=== PATIENT | female | born 1985 | race Hispanic/Latino ===

== ENCOUNTER 2017-11-08 12:19 | Emergency (ER) | payer SELFPAY ==
[2017-11-08] MEDS ORDERED: ACETAMINOPHEN 325 MG TAB ONE (13:33)
[2017-11-08] MEDS ORDERED: ONDANSETRON ODT 4 MG TAB ONE (13:33)
[2017-11-08 13:47] LABS: RAPID GROUP A STREP NEGATIVE (NEGATIVE)
[2017-11-08 13:47] LABS: APPEARANCE,URINE Clear (CLEAR); BILIRUBIN,URINE Negative (NEGATIVE); COLOR,URINE Yellow (YELLOW); GLUCOSE, URINE (UA) Negative (NEGATIVE); KETONES,URINE Negative (NEGATIVE); LEUKOCYTE ESTERASE ,URINE Negative (NEGATIVE); NITRATE,URINE Negative (NEGATIVE); OCCULT BLOOD,URINE Small (NEGATIVE); PROTEIN,URINE Negative (NEGATIVE)
[2017-11-08 13:48] LABS: HCG,QUAL RESULT NEGATIVE (NEGATIVE)
[2017-11-08 14:01] LABS: BACTERIA,URINE None Seen /HPF (None Seen); WBC,URINE None Seen /HPF (0-1)
[2017-11-08] MEDS ORDERED: KETOROLAC TROMETHAMINE 60 MG/2 ML VIAL ONE (14:12)
== END 2017-11-08 15:03 | disposition home or self-care (01) ==
LOC: EDH 12:19
DX: J10.1 Influenza due to other identified influenza virus with other respiratory manifestations (principal); R50.81 Fever presenting with conditions classified elsewhere
CPT/HCPCS: 81001; 81025; 87804 ×2; 87880; 96372; 99284; J1885

== ENCOUNTER 2018-05-24 20:38 | Emergency (ER) | payer OTHER ==
[2018-05-24 21:25] LABS: APPEARANCE,URINE Clear (CLEAR); BILIRUBIN,URINE Negative (NEGATIVE); COLOR,URINE Yellow (YELLOW); GLUCOSE, URINE (UA) Negative (NEGATIVE); KETONES,URINE Negative (NEGATIVE); LEUKOCYTE ESTERASE ,URINE Negative (NEGATIVE); NITRATE,URINE Negative (NEGATIVE); OCCULT BLOOD,URINE Negative (NEGATIVE); PROTEIN,URINE Negative (NEGATIVE)
[2018-05-24 21:33] LABS: HCG,QUAL RESULT NEGATIVE (NEGATIVE)
[2018-05-24 21:34] LABS: BASOPHILS % (AUTO) 0.5 % (0.0-5.0); CREATININE 0.7 mg/dL (0.5-1.5); EOSINOPHILS % (AUTO) 5.5 % (0.0-8.0); HEMATOCRIT 35.8 % (36-48); MEAN CORPUSCULAR HEMOGLOBIN 23.2 pg (27.0-33.0); MEAN CORPUSCULAR HGB CONC 31.7 g/dL (32.0-36.0); MEAN CORPUSCULAR VOLUME 73.4 fL (79-99); MONOCYTES % (AUTO) 8.1 % (3.0-13.0); NEUTROPHILS % (AUTO) 61.9 % (40.0-77.0); NUCLEATED RED BLOOD CELLS 0.1 % (0.0-0.19); PLATELET COUNT (AUTO) 251 K/uL (130-400); POTASSIUM 3.3 mmol/L (3.5-5.1); RED BLOOD CELL COUNT(AUTO) 4.88 MIL/uL (4.00-5.50); RED CELL DISTRIBUTION WIDTH 16.4 % (11.0-15.5); WHITE BLOOD COUNT (AUTO) 6.9 K/uL (4.8-10.8)
[2018-05-24 21:39] LABS: BILIRUBIN,TOTAL 0.2 mg/dL (0.2-1.0); TOTAL PROTEIN, SERUM 6.7 g/dL (6.0-8.3)
[2018-05-24] MEDS ORDERED: POTASSIUM BICARB/CIT AC 25 MEQ TABLET.EFF ONE (22:04)
[2018-05-24] MEDS ORDERED: ONDANSETRON ODT 4 MG TAB ONE (22:04)
== END 2018-05-24 22:10 | disposition home or self-care (01) ==
LOC: EDH 20:38
DX: J06.9 Acute upper respiratory infection, unspecified (principal)
CPT/HCPCS: 36415; 80053; 81003; 81025; 85025; 87804

== ENCOUNTER 2019-04-12 17:58 | Emergency (ER) | payer SELFPAY ==
[2019-04-12] MEDS ORDERED: PREDNISONE 20 MG TABLET ONE (18:12)
[2019-04-12] MEDS ORDERED: FAMOTIDINE 20MG TAB 20 MG TAB ONE (18:12)
[2019-04-12] MEDS ORDERED: DIPHENHYDRAMINE HCL 25 MG CAPSULE ONE (18:13)
== END 2019-04-12 19:25 | disposition home or self-care (01) ==
LOC: EDH 17:58
DX: L50.0 Allergic urticaria (principal)
CPT/HCPCS: 99284; Q0163

== ENCOUNTER 2019-05-22 10:51 | Emergency (ER) | payer SELFPAY ==
[2019-05-22] MEDS ORDERED: KETOROLAC TROMETHAMINE 60 MG/2 ML VIAL ONE (11:07)
== END 2019-05-22 11:20 | disposition home or self-care (01) ==
LOC: EDH 10:51
DX: H60.92 Unspecified otitis externa, left ear (principal)
CPT/HCPCS: 96372; 99283; J1885

== ENCOUNTER 2019-06-07 10:05 | Emergency (ER) | payer SELFPAY ==
[2019-06-07] MEDS ORDERED: KETOROLAC TROMETHAMINE 30MG/ML ONE (10:44)
[2019-06-07] MEDS ORDERED: DICYCLOMINE HCL 10 MG/ML 2ML AMP IM ONE (10:44)
[2019-06-07] MEDS ORDERED: ONDANSETRON HCL 4 MG/2 ML VIAL ONE (10:44)
[2019-06-07] MEDS ORDERED: SODIUM CHLORIDE 0.9% 1000ML 1,000 ML IV ONE (10:45)
[2019-06-07] MEDS ORDERED: SODIUM CHLORIDE 0.9% 50 ML IV ONE (10:45)
[2019-06-07 10:48] LABS: APPEARANCE,URINE Clear (CLEAR); BASOPHILS % (AUTO) 0.7 % (0.0-5.0); BILIRUBIN,URINE Negative (NEGATIVE); COLOR,URINE Yellow (YELLOW); GLUCOSE, URINE (UA) Negative (NEGATIVE); HEMATOCRIT 36.4 % (36-48); KETONES,URINE Trace mg/dL (NEGATIVE); LEUKOCYTE ESTERASE ,URINE Negative (NEGATIVE); MEAN CORPUSCULAR HEMOGLOBIN 23.5 pg (27.0-33.0); MEAN CORPUSCULAR HGB CONC 32.1 g/dL (32.0-36.0); MEAN CORPUSCULAR VOLUME 73.3 fL (79-99); MONOCYTES % (AUTO) 7.8 % (3.0-13.0); NEUTROPHILS % (AUTO) 65.5 % (40.0-77.0); NITRATE,URINE Negative (NEGATIVE); NUCLEATED RED BLOOD CELLS 0.1 % (0.0-0.19); OCCULT BLOOD,URINE Negative (NEGATIVE); PH,URINE 6.5 (5.0-8.0); PLATELET COUNT (AUTO) 206 K/uL (130-400); PROTEIN,URINE Trace mg/dL (NEGATIVE); RED BLOOD CELL COUNT(AUTO) 4.97 MIL/uL (4.00-5.50); RED CELL DISTRIBUTION WIDTH 16.7 % (11.0-15.5); WHITE BLOOD COUNT (AUTO) 5.9 K/uL (4.8-10.8)
[2019-06-07 10:50] LABS: HCG,QUAL RESULT NEGATIVE (NEGATIVE)
[2019-06-07 11:00] LABS: CREATININE 0.7 mg/dL (0.5-1.5); POTASSIUM 3.4 mmol/L (3.5-5.1)
[2019-06-07 11:04] LABS: ALBUMIN 3.3 g/dL (3.5-5.0); BILIRUBIN,TOTAL 0.5 mg/dL (0.2-1.0); TOTAL PROTEIN, SERUM 6.5 g/dL (6.0-8.3)
[2019-06-07 11:56] LABS: BACTERIA,URINE Few /HPF (None Seen); MUCUS,URINE Many LPF (None Seen); RBC,URINE 0-1 /HPF (0-1); SQUAMOUS EPITHELIAL CELL,UR Moderate /HPF (0-2)
== END 2019-06-07 11:43 | disposition home or self-care (01) ==
LOC: EDH 10:05
DX: R11.2 Nausea with vomiting, unspecified (principal); R19.7 Diarrhea, unspecified; R10.9 Unspecified abdominal pain; Z98.890 Other specified postprocedural states
CPT/HCPCS: 36415; 80053; 81001; 81025; 83690; 85025; 96365; 96372; 96375; 99284; J0500; J1885; J2405; J7030

== ENCOUNTER 2020-03-04 11:35 | Emergency (ER) | payer OTHER ==
[2020-03-04] MEDS ORDERED: ACETAMINOPHEN EXTRA STRENGTH 500 MG TABLET ONE (12:18)
[2020-03-04] MEDS ORDERED: CEFTRIAXONE SODIUM 2 GM VIAL ONE (12:50)
== END 2020-03-04 15:52 | disposition home or self-care (01) ==
LOC: EDH 11:35
DX: U07.1 COVID-19 (principal); R50.9 Fever, unspecified; R06.02 Shortness of breath; R19.7 Diarrhea, unspecified; R11.10 Vomiting, unspecified
CPT/HCPCS: 36415; 71045; 80053; 81001; 82550; 83605; 83874; 84145; 84484; 85025; 85610; 85730; 87040 ×2; 87088; 87804 ×2; 87880; 93005; 96361; 96374; 99285; J0696; U0003